=== PATIENT | female | born 1975 | race Caucasian/White ===

== ENCOUNTER → 2016-06-08 | Outpatient (CLI) | payer BC ==
[2015-09-13 14:31] VITALS: BP 108/67
[~2016-06-08] MED LIST: FLUO10CA13 PO; HYDR-971 PO
--- NOTE | 2016-06-08 14:21 | RAD ---
CT scan of the abdomen and pelvis without contrast 06/08/2016 Clinical history: Dysuria with intermittent left flank pain for 2 weeks worsening today. Technique: Unenhanced, contiguous, 3 mm axial sections were obtained through the abdomen and pelvis. One or more of the following individualized dose reduction techniques were utilized for this study: 1. Automated exposure control. 2. Adjustment of the mA and/or kV according to patient size. 3. Use of iterative reconstruction technique. Findings: The liver, spleen, pancreas and adrenal glands are within normal limits. No renal or ureteral calculus is seen. There is no evidence of obstruction of either collecting system. Mild atherosclerotic calcification of the abdominal aorta is seen. The abdominal aorta tapers normally. The gallbladder is contracted. No free fluid or free air is seen within the abdomen. There is no evidence of bowel obstruction. Air and stool is seen throughout the colon. The appendix is well visualized and is within normal limits. Images through the pelvis demonstrate the urinary bladder distended with urine. Calcifications are seen within the pelvis consistent with phleboliths. No free fluid is seen. No distal ureteral calculus is noted. Scattered diverticula are seen involving the sigmoid colon. No inflammatory changes are seen in the adjacent fat. Mild S-shaped curvature of the thoracolumbar spine is seen. Degenerative changes are seen along the lower lumbar spine and both hips. Impression: No acute abnormality is seen.
== END | disposition home or self-care (01) ==
LOC: CT 13:34
PROVIDERS: ATTEND Physician Assistant Medical
DX: R60.0 Localized edema (principal)
CPT/HCPCS: 74176

== ENCOUNTER → 2017-11-23 | Outpatient (CLI) | payer BC ==
[2015-09-13 14:31] VITALS: BP 108/67
--- NOTE | 2017-11-24 08:38 | RAD ---
DATE: 11/23/2017 EXAM: MAMMO MARLEN SCREENING BILATERAL HISTORY: Screening mammography. No current relevant symptoms. COMPARISON: 11/07/2014, 11/23/2017 screening mammographic exams This study was interpreted with the benefit of Computerized Aided Detection (CAD ). Breast Density: Scattered fibroglandular densities are present. FINDINGS: Benign calcifications are present. No mass or distortion in the interval. No suspicious calcifications. IMPRESSION: BI-RADS CATEGORY: 2 BENIGN FINDING(S) RECOMMENDED FOLLOW-UP: PQRS compliance statement: Patient information was entered into a reminder system with a target due date 1 year for the next mammogram. Mammography is a sensitive method for finding small breast cancers, but it does not detect them all and is not a substitute for careful clinical examination. A negative mammogram does not negate a clinically suspicious finding and should not result in delay in biopsying a clinically suspicious abnormality. "Our facility is accredited by the [employer] Mammography Program." TIFFANIED
== END | disposition home or self-care (01) ==
LOC: MAMMO 08:01
PROVIDERS: ATTEND Physician Assistant Medical
DX: Z12.31 Encounter for screening mammogram for malignant neoplasm of breast (principal); K21.9 Gastro-esophageal reflux disease without esophagitis; Z90.710 Acquired absence of both cervix and uterus
CPT/HCPCS: 77063; 77067

== ENCOUNTER 2018-05-08 18:14 | Observation (INO) | payer BC ==
[~2018-05-08] VITALS: Ht 168.9 cm; Wt 85.0 kg
[~2018-05-08 18:14] MED LIST changes: +HYDR-3165 PO; -HYDR-971 PO
--- NOTE | 2018-05-08 18:20 | ED.ADGEN ---
Past History Past Medical History: Anxiety Past Surgical History: Hysterectomy Alcohol Use: Occasionally Drug Use: None Adult General Chief Complaint Chief Complaint ".. I passed out..." .. " at dinner last night..... " .. " but I still got this chest pain...-"Pt.. ".. She was not breathing... and I could not feel a pulse so I started CPR and breathing for her... "...she eventually came around... " She had Chest Pain... but she would not come to the hospital.." - HPI HPI Patient is a 42 year old female who presents with above hx and complaints of syncope with loss of consciousness last night at dinner. Reportedly patient gave her breaths and started compressions on or before she regained consciousness. On regaining consciousness patient reported chest pain left lower chest wall which has been persistent all day with no improvement. The pain appears to be chest wall. Patient does not remember any presyncope symptoms or findings of dysrhythmia.. Patient does smoke. No previous cardiac history no previous history of syncope. Patient denies any history of coagulopathy. Patient denies health problems. Patient normally follows with Dr. Ruiz Review of Systems Review of Systems Constitutional: Denies fever or chills [] Eyes: Denies change in visual acuity, redness, or eye pain []Hx. blindness in left eye HENT: Denies nasal congestion or sore throat [] Respiratory: Denies cough or shortness of breath [] Cardiovascular: No additional information not addressed in HPI [] GI: Denies abdominal pain, nausea, vomiting, bloody stools or diarrhea [] : Denies dysuria or hematuria [] Musculoskeletal: Denies back pain or joint pain [] Integument: Denies rash or skin lesions [] Neurologic: Denies headache, focal weakness or sensory changes [] Endocrine: Denies polyuria or polydipsia [] All other systems were reviewed and found to be within normal limits, except as documented in this note. Family History Family History No early onset of cardiac problems or coagulopathy Current Medications Current Medications Current Medications Medications (Trade) Dose Ordered Sig/Marcela Start Time Stop Time Status Last Admin Dose Admin Lactated Ringer's 1,000 ml @ 100 mls/hr Q10H 05/08/18 18:30 05/09/18 04:30 DC 05/08/18 23:16 100 MLS/HR Allergies Allergies Allergies Coded Allergies Type Severity Reaction Last Updated Verified No Known Drug Allergies 12/24/14 No Physical Exam Physical Exam Constitutional: , [id number] distress, non-toxic appearance. [] HENT: Normocephalic, atraumatic, bilateral external ears normal, oropharynx moist, no oral exudates, nose normal. [] Eyes: PERRLA, EOMI, conjunctiva normal, no discharge. Glasses. Blind left eye- chronic finding Neck: Normal range of motion, no tenderness, supple, no stridor. [] No bruits in neck Cardiovascular:Heart rate regular rhythm, no murmur [] Lungs & Thorax: Bilateral breath sounds equal at apex with scattered wheezes auscultation []reproducible chest wall tenderness along left edge of sternum. Abdomen: Bowel sounds normal, soft, no tenderness, no masses, no pulsatile masses. [] Old surgery scar. Skin: Warm, dry, no erythema, no rash. [] Back: No tenderness, no CVA tenderness. [] Extremities: No tenderness, no cyanosis, no clubbing, ROM intact, no edema. [] No cording appreciated in legs Neurologic: Alert and oriented X 3, normal motor function, normal sensory function, no focal deficits noted. []DTRs are +2 at patella and brachial. [employer] are equal. No drift. Patient ambulatory without problems. Psychologic: Affect anxious, judgement normal, mood normal. [] Current Patient Data Vital Signs Vital Signs Date Time Temp Pulse Resp B/P (MAP) Pulse Ox O2 Delivery O2 Flow Rate FiO2 05/08/18 19:40 73 20 121/75 (90) 98 Room Air 05/08/18 18:26 98.3 Lab Results Laboratory Tests Test 05/08/18 18:50 05/08/18 19:35 White Blood Count 7.3 x10^3/uL (4.0-11.0) Red Blood Count 4.36 x10^6/uL (3.50-5.40) Hemoglobin 14.1 g/dL (12.0-15.5) Hematocrit 40.3 % (36.0-47.0) Mean Corpuscular Volume 93 fL (79-100) Mean Corpuscular Hemoglobin 32 pg (25-35) Mean Corpuscular Hemoglobin Concent 35 g/dL (31-37) Red Cell Distribution Width 13.1 % (11.5-14.5) Platelet Count 299 x10^3/uL (140-400) Neutrophils (%) (Auto) 49 % (31-73) Lymphocytes (%) (Auto) 42 % (24-48) Monocytes (%) (Auto) 6 % (0-9) Eosinophils (%) (Auto) 2 % (0-3) Basophils (%) (Auto) 1 % (0-3) Neutrophils # (Auto) 3.6 x10^3uL (1.8-7.7) Lymphocytes # (Auto) 3.1 x10^3/uL (1.0-4.8) Monocytes # (Auto) 0.4 x10^3/uL (0.0-1.1) Eosinophils # (Auto) 0.1 x10^3/uL (0.0-0.7) Basophils # (Auto) 0.1 x10^3/uL (0.0-0.2) Erythrocyte Sedimentation Rate 5 (0-25) Prothrombin Time 9.3 SEC (9.4-11.4) L Prothrombin Time INR 0.9 (0.9-1.1) PTT 27 SEC (23-33) D-Dimer (Dilia) 0.39 mg/L (0.00-0.50) Sodium Level 143 mmol/L (136-145) Potassium Level 3.6 mmol/L (3.5-5.1) Chloride Level 107 mmol/L (98-107) Carbon Dioxide Level 24 mmol/L (21-32) Anion Gap 12 (6-14) Blood Urea Nitrogen 17 mg/dL (7-20) Creatinine 1.0 mg/dL (0.6-1.0) Estimated GFR (Cockcroft-Gault) 60.8 Glucose Level 102 mg/dL (70-99) H Calcium Level 9.3 mg/dL (8.5-10.1) Magnesium Level 2.1 mg/dL (1.8-2.4) Total Bilirubin 0.2 mg/dL (0.2-1.0) Direct Bilirubin 0.1 mg/dL (0.0-0.2) Aspartate Amino Transferase (AST) 16 U/L (15-37) Alanine Aminotransferase (ALT) 18 U/L (14-59) Alkaline Phosphatase 73 U/L (46-116) Creatine Kinase 77 U/L (26-192) Troponin I Quantitative < 0.017 ng/mL (0-0.055) BL-Mox-D-Type Natriuretic Peptide 32 pg/mL (0-124) Total Protein 7.4 g/dL (6.4-8.2) Albumin 4.2 g/dL (3.4-5.0) Lipase 218 U/L (73-393) Ethyl Alcohol Level < 10 mg/dL (0-10) Urine Collection Type Unknown Urine Color Yellow Urine Clarity Clear Urine pH 6.5 Urine Specific [place] 1.010 Urine Protein Neg (NEG-TRACE) Urine Glucose (UA) Neg mg/dL (NEG) Urine Ketones (Stick) Neg mg/dL (NEG) Urine Blood Trace (NEG) Urine Nitrite Neg (NEG) Urine Bilirubin Neg (NEG) Urine Urobilinogen Dipstick 0.2 mg/dL (0.2 mg/dL) Urine Leukocyte Esterase Trace (NEG) Urine RBC Occ /HPF (0-2) Urine WBC 1-4 /HPF (0-4) Urine Squamous Epithelial Cells Few /LPF Urine Bacteria 0 /HPF (0-FEW) Urine Opiates Screen Neg (NEG) Urine Methadone Screen Neg (NEG) Urine Barbiturates Neg (NEG) Urine Phencyclidine Screen Neg (NEG) Urine Amphetamine/Methamphetamine Neg (NEG) Urine Benzodiazepines Screen Neg (NEG) Urine Cocaine Screen Neg (NEG) Urine Cannabinoids Screen Neg (NEG) Urine Ethyl Alcohol Neg (NEG) EKG EKG My interpretation EKG shows a sinus rhythm at 78 beats per minute. There is some nonspecific contour admin Carol is anterior septal leads. But no findings acute STEMI with contralateral changes.[] Radiology/Procedures Radiology/Procedures My interpretation chest x-ray shows no acute cardiopulmonary findings. No free air in the diaphragm. No findings of pneumothorax.[] No large infiltrate, or consolidation, but there are some patchy areas interstitial areas versus atelectasis. My interpretation CT of head shows no shift, mass, edema, bleed, or fracture. See formal report when available Course & Med Decision Making Course & Med Decision Making Pertinent Labs and Imaging studies reviewed. (See chart for details) Patient to be admitted to and to have cardiology consult. Neuro monitoring. [] Final Impression Final Impression 1. Syncope[] 2. Chest Pain 3. Hx. CPR last night ? 4. Tobacco Use 5. Blind Lt eye Dragon Disclaimer Fidelon Disclaimer This electronic medical record was generated, in whole or in part, using a voice recognition dictation system. Discharge Summary Visit Information Final Diagnosis Problems Medical Problems: (1) Syncope and collapse Status: Acute Brief Hospital Course Allergies Allergies Coded Allergies Type Severity Reaction Last Updated Verified No Known Drug Allergies 12/24/14 No Vital Signs Vital Signs Date Time Temp Pulse Resp B/P (MAP) Pulse Ox O2 Delivery O2 Flow Rate FiO2 05/08/18 19:40 73 20 121/75 (90) 98 Room Air 05/08/18 18:26 98.3 Lab Results Laboratory Tests Test 05/08/18 18:50 05/08/18 19:35 White Blood Count 7.3 x10^3/uL (4.0-11.0) Red Blood Count 4.36 x10^6/uL (3.50-5.40) Hemoglobin 14.1 g/dL (12.0-15.5) Hematocrit 40.3 % (36.0-47.0) Mean Corpuscular Volume 93 fL (79-100) Mean Corpuscular Hemoglobin 32 pg (25-35) Mean Corpuscular Hemoglobin Concent 35 g/dL (31-37) Red Cell Distribution Width 13.1 % (11.5-14.5) Platelet Count 299 x10^3/uL (140-400) Neutrophils (%) (Auto) 49 % (31-73) Lymphocytes (%) (Auto) 42 % (24-48) Monocytes (%) (Auto) 6 % (0-9) Eosinophils (%) (Auto) 2 % (0-3) Basophils (%) (Auto) 1 % (0-3) Neutrophils # (Auto) 3.6 x10^3uL (1.8-7.7) Lymphocytes # (Auto) 3.1 x10^3/uL (1.0-4.8) Monocytes # (Auto) 0.4 x10^3/uL (0.0-1.1) Eosinophils # (Auto) 0.1 x10^3/uL (0.0-0.7) Basophils # (Auto) 0.1 x10^3/uL (0.0-0.2) Erythrocyte Sedimentation Rate 5 (0-25) Prothrombin Time 9.3 SEC (9.4-11.4) Prothromb Time International Ratio 0.9 (0.9-1.1) Activated Partial Thromboplast Time 27 SEC (23-33) D-Dimer (Dilia) 0.39 mg/L (0.00-0.50) Sodium Level 143 mmol/L (136-145) Potassium Level 3.6 mmol/L (3.5-5.1) Chloride Level 107 mmol/L (98-107) Carbon Dioxide Level 24 mmol/L (21-32) Anion Gap 12 (6-14) Blood Urea Nitrogen 17 mg/dL (7-20) Creatinine 1.0 mg/dL (0.6-1.0) Estimated GFR (Cockcroft-Gault) 60.8 Glucose Level 102 mg/dL (70-99) Calcium Level 9.3 mg/dL (8.5-10.1) Magnesium Level 2.1 mg/dL (1.8-2.4) Total Bilirubin 0.2 mg/dL (0.2-1.0) Direct Bilirubin 0.1 mg/dL (0.0-0.2) Aspartate Amino Transf (AST/SGOT) 16 U/L (15-37) Alanine Aminotransferase (ALT/SGPT) 18 U/L (14-59) Alkaline Phosphatase 73 U/L (46-116) Creatine Kinase 77 U/L (26-192) Troponin I Quantitative < 0.017 ng/mL (0-0.055) UA-Kvj-K-Type Natriuretic Peptide 32 pg/mL (0-124) Total Protein 7.4 g/dL (6.4-8.2) Albumin 4.2 g/dL (3.4-5.0) Lipase 218 U/L (73-393) Ethyl Alcohol Level < 10 mg/dL (0-10) Urine Collection Type Unknown Urine Color Yellow Urine Clarity Clear Urine pH 6.5 Urine Specific [place] 1.010 Urine Protein Neg (NEG-TRACE) Urine Glucose (UA) Neg mg/dL (NEG) Urine Ketones (Stick) Neg mg/dL (NEG) Urine Blood Trace (NEG) Urine Nitrite Neg (NEG) Urine Bilirubin Neg (NEG) Urine Urobilinogen Dipstick 0.2 mg/dL (0.2 mg/dL) Urine Leukocyte Esterase Trace (NEG) Urine RBC Occ /HPF (0-2) Urine WBC 1-4 /HPF (0-4) Urine Squamous Epithelial Cells Few /LPF Urine Bacteria 0 /HPF (0-FEW) Urine Opiates Screen Neg (NEG) Urine Methadone Screen Neg (NEG) Urine Barbiturates Neg (NEG) Urine Phencyclidine Screen Neg (NEG) Urine Amphetamine/Methamphetamine Neg (NEG) Urine Benzodiazepines Screen Neg (NEG) Urine Cocaine Screen Neg (NEG) Urine Cannabinoids Screen Neg (NEG) Urine Ethyl Alcohol Neg (NEG) Brief Hospital Course Ms. Modi is a 42 old female who presented with hx of syncope yester night with short course of CPR by . Came in because of continued chest pain. Admitted to Dr Lester with cardiology consult. Discharge Information Condition at Discharge: Stable Dischare Medications Current Medications Lactated Ringer's 1,000 ml @ 100 mls/hr Q10H IV Last administered on at 23:16; Admin Dose 100 MLS/HR; Start 05/08/18 at 18:30; Stop 05/09/18 at 04: 30; Status DC Active Scripts Active [place] 5-325 Tablet (Hydrocodone Bit/Acetaminophen) 1 Each Tablet 1-2 Tab PO Q6HRS PRN Reported Prozac (Fluoxetine Hcl) 10 Mg Capsule Unknown Dose PO Dragon Disclaimer This chart was dictated in whole or in part using Voice Recognition software in a busy, high-work load, and often noisy Emergency Department environment. It may contain unintended and wholly unrecognized errors or omissions. CAIT ABDI MD May 08, 2018 18:20
--- NOTE | 2018-05-08 18:46 | EKG ---
[address] [address] Test Date: 2018-05-08 Test Time: 18:34:18 Pat Name: LORRI ESPITIA Department: Room: Gender: F Cable Swager: : 1975 Requested By: CAIT ABDI Order Number: [id number] Reading MD: Daniel Castellanos MD Measurements Intervals [place] Rate: 78 P: 28 [place]: 154 QRS: 39 QRSD: 78 T: 26 QT: 350 QTc: 402 Interpretive Statements SINUS RHYTHM Electronically Signed On 05-09-2018 11:47:10 CDT by Daniel Castellanos MD
[2018-05-08] MEDS: IV RINGERS SOLUTION,LACTATED 1,000 ML IV SCH ×2 (18:55→23:16)
[2018-05-08 19:07] LABS: BASO # 0.1 x10^3/uL (0.0-0.2); BASO % 1 % (0-3); EOS # 0.1 x10^3/uL (0.0-0.7); EOS % 2 % (0-3); HEMATOCRIT 40.3 % (36.0-47.0); HEMOGLOBIN 14.1 g/dL (12.0-15.5); LYMPH # 3.1 x10^3/uL (1.0-4.8); LYMPH % 42 % (24-48); MEAN CORPUSCULAR HEMOGLOBIN 32 pg (25-35); MEAN CORPUSCULAR HGB CONC 35 g/dL (31-37); MEAN CORPUSCULAR VOLUME 93 fL (79-100); MONO # 0.4 x10^3/uL (0.0-1.1); MONO % 6 % (0-9); NEUT # 3.6 x10^3uL (1.8-7.7); NEUT % 49 % (31-73); PLATELET COUNT 299 x10^3/uL (140-400); RED BLOOD COUNT 4.36 x10^6/uL (3.50-5.40); RED CELL DISTRIBUTION WIDTH 13.1 % (11.5-14.5); WHITE BLOOD COUNT 7.3 x10^3/uL (4.0-11.0)
[2018-05-08 19:29] LABS: ALBUMIN 4.2 g/dL (3.4-5.0); CALCIUM 9.3 mg/dL (8.5-10.1); DIRECT BILIRUBIN 0.1 mg/dL (0.0-0.2); GFR 60.8; MAGNESIUM 2.1 mg/dL (1.8-2.4); POTASSIUM 3.6 mmol/L (3.5-5.1); TOTAL BILIRUBIN 0.2 mg/dL (0.2-1.0); TOTAL PROTEIN 7.4 g/dL (6.4-8.2)
--- NOTE | 2018-05-08 19:43 | RAD ---
CT HEAD WO CONTRAST Clinical indications: Syncope COMPARISON: None available. Technique: Noncontrast axial cross sectional scanning of the head was performed. PQRS compliance Statement One or more of the following individualized dose reduction techniques were utilized for this study: 1. Automated exposure control 2. Adjustment of the mA and/or kV according to patient size 3. Use of iterative reconstruction technique Findings: No acute intracranial hemorrhage or midline shift or mass-effect or hydrocephalus or extra-axial fluid collection is seen. No focal hypodense area or sulci effacement is seen to indicate an acute infarct or edema radiographically. No skull fracture or pneumocephalus is seen. No opacification of the mastoid sinuses or the paranasal sinuses is seen. The maxillary sinuses are not seen in this study. Impression: No acute intracranial abnormality is seen. Electronically signed by: Rustam Dominguez MD (05/08/2018 7:40 PM) [facility]
[2018-05-08 19:59] LABS: BARBITURATES NEG (NEG); BENZODIAZEPINES NEG (NEG); CANNABINOIDS NEG (NEG); COCAINE NEG (NEG); METHADONE NEG (NEG); OPIATES NEG (NEG); PHENCYCLIDINE NEG (NEG)
[2018-05-08 20:00] LABS: AMPHETAMINE/METHAMPHETAMINE NEG (NEG)
[2018-05-08 20:09] LABS: BILIRUBIN,URINE NEG (NEG); CLARITY,URINE CLEAR; COLOR,URINE YELLOW; GLUCOSE,URINE NEG (NEG); NITRITE,URINE NEG (NEG); RBC,URINE OCC /HPF (0-2); UROBILINOGEN,URINE 0.2 mg/dL (0.2 mg/dL)
[2018-05-08 20:10] LABS: BACTERIA,URINE 0 /HPF (0-FEW); SQUAMOUS EPITHELIAL CELL,UR FEW /LPF
[2018-05-08 20:11] LABS: SEDIMENTATION RATE 5 (0-25)
[2018-05-08] MEDS ORDERED: ENOXAPARIN ** NOTE DOSE ** SYRINGE SQ ONE (21:00)
[2018-05-08] MEDS ORDERED: ASPIRIN 325 MG TABLET PO ONE (21:00)
[2018-05-08] MEDS ORDERED: ENOXAPARIN ** NOTE DOSE ** SYRINGE SQ SCH (21:00)
[2018-05-08 21:51] VITALS: BP 125/85
--- NOTE | 2018-05-09 00:57 | RAD ---
Indication:Syncope TECHNIQUE:Portable AP chest X-ray COMPARISON:None FINDINGS: Heart is normal in size. Mild bilateral interstitial opacities. No focal consolidation. No pneumothorax or pleural effusion. Visualized bony thorax within normal limits. IMPRESSION: Mild interstitial opacities bilaterally may be secondary to atypical/viral infection. Electronically signed by: Urban Maria DO (05/09/2018 12:54 AM) [id number]
[2018-05-09] MEDS: ACETAMINOPHEN 325 MG TABLET PO PRN ×3 (05:14→22:20)
[2018-05-09 05:24] VITALS: BP 99/64
[2018-05-09 07:26] LABS: BASO % 1 % (0-3); EOS # 0.1 x10^3/uL (0.0-0.7); EOS % 2 % (0-3); HEMATOCRIT 39.2 % (36.0-47.0); HEMOGLOBIN 13.5 g/dL (12.0-15.5); LYMPH # 2.1 x10^3/uL (1.0-4.8); LYMPH % 37 % (24-48); MEAN CORPUSCULAR HEMOGLOBIN 32 pg (25-35); MEAN CORPUSCULAR HGB CONC 35 g/dL (31-37); MEAN CORPUSCULAR VOLUME 92 fL (79-100); MONO # 0.4 x10^3/uL (0.0-1.1); MONO % 7 % (0-9); NEUT # 3.1 x10^3uL (1.8-7.7); NEUT % 53 % (31-73); PLATELET COUNT 259 x10^3/uL (140-400); RED BLOOD COUNT 4.28 x10^6/uL (3.50-5.40); RED CELL DISTRIBUTION WIDTH 12.9 % (11.5-14.5); WHITE BLOOD COUNT 5.9 x10^3/uL (4.0-11.0)
[2018-05-09 07:30] LABS: GFR 60.8
[2018-05-09] MEDS: IPRATRPIUM/ALBUTEROL 0.5/2.5MG 3 ML NEBU. NEB SCH ×4 (08:00→20:00)
--- NOTE | 2018-05-09 10:02 | HP ---
ADMIT DATE: 05/08/2018 HISTORY OF PRESENT ILLNESS: The patient is a 42-year-old female patient, who came to the Emergency Room stating that she had a syncopal episode with loss of consciousness the night before at dinner. Reportedly, the patient's gave her a breathing breath and started compression before she regained her consciousness. On regaining her consciousness, the patient reported chest pain in the left lower chest wall, which has persisted all day with no improvement. Her apparently wanted her to come to the hospital, but the patient refused to come and in fact, she went yesterday and worked at [employer] in [place] and eventually she came to the Emergency Room because the pain continued. She said that she had a syncopal episode about 20 years ago when her daughter was born, but has never had any symptoms like this. She was evaluated in the Emergency Room. Her EKG showed that she was in sinus rhythm. Her first set of cardiac enzyme was normal, showed no evidence of ST segment elevation or depression. She was admitted to do 2 more sets of cardiac enzyme and consult the Cardiology. PAST MEDICAL HISTORY: Significant for severe gastroesophageal reflux disease, diverticulosis, and divergent squint during childhood. 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 PAST SURGICAL HISTORY: Significant for total abdominal hysterectomy. She has also esophagogastroduodenoscopy and colonoscopy. ALLERGIES: She has no known drug allergies. MEDICATIONS: She is currently on Protonix 40 mg once a day. She is also on fluoxetine 10 mg once a day, and hydrocodone/APAP 5/325 every 6 hours. FAMILY HISTORY: She has 2 sisters, both younger and healthy. Her father is alive at age of 63 and healthy. Her mother is alive at the age of 63 and has hypertension. SOCIAL HISTORY: She is , has 1 daughter. She smokes half to 1 pack a day, does not drink alcohol, smokes marijuana occasionally. She works at [employer] in [place]. REVIEW OF SYSTEMS: The patient is blind in her left eye, but denied any cataract, glaucoma, or macular degeneration. Denied any earache, tinnitus, or sensorineural deafness. Denied any nosebleeds, stuffy nose, or postnasal drip. Denied any sore throat, sore tongue, toothache, hoarseness of voice, or difficulty swallowing. Denied any nausea, vomiting, diarrhea, or constipation. Denied any hematemesis, melena, or hematochezia. Denied any dysuria, frequency, or hematuria. Did complain of left-sided chest pain, but denied any shortness of breath, orthopnea, or paroxysmal nocturnal dyspnea. Denied any cough, phlegm, or hemoptysis. Denied any further episode of dizziness, lightheadedness, or vertigo. Denied any chills, rigors, or fever. PHYSICAL EXAMINATION: GENERAL: On arrival to the Emergency Room, she looked well and was clearly in no apparent respiratory distress. No pallor, jaundice, cyanosis, or thyromegaly. No jugular venous distension. No lower limb edema. VITAL SIGNS: Her heart rate was 84, blood pressure 107/74, temperature was 98.3, respiratory rate 20, and oxygen saturation was 97% on room air. HEAD, EYES, EARS, NOSE, AND THROAT: Showed normocephalic, atraumatic. NECK: Supple. HEART: Showed normal first and second heart sounds with no gallop, rub, or murmur. CHEST: Clear to auscultation. No crepitation or rhonchi. ABDOMEN: Distended, soft, nontender. No guarding or rigidity. No organomegaly. All hernial orifices are intact. Bowel sounds normal. NEUROLOGIC: She is awake, alert, responding appropriately. All cranial nerves intact. EXTREMITIES: She moves extremities without difficulty. She ambulates without assistance or assistive devices. LABORATORY DATA: Her lab work on admission showed a white cell count of 7300, hemoglobin 14, hematocrit 40, MCV 93, and platelet count 299,000. Serum sodium was 143, potassium 3.6, chloride 107, bicarbonate 24, anion gap of 12, BUN 17, creatinine 1, estimated GFR was 61 mL per minute. Her glucose 102, calcium was 9.3, magnesium 2.1. Total bilirubin, AST, ALT, alkaline phosphatase were normal. Total protein was 7.4, albumin was 4.2. Lipase was 218. Her prothrombin time was 9.3, INR of 0.9, aPTT was 27, and D-dimer was 0.39. Her urinalysis showed the urine was yellow, clear with a pH of 6.5, specific gravity of 1.010. The urine was negative for protein, glucose, ketones, trace of blood, negative for nitrite and trace leukocyte esterase. There are occasional rbc's, 1-4 wbc's, and no bacteria. Her urine toxicology screen was essentially negative. Her CT scan of the head showed that the patient showed no intracranial hemorrhage, midline shift, or mass effect. No hydrocephalus or extraaxial fluid collection is seen. No focal hypodense areas or sulci effacement is seen to indicate an acute infarct or edema. Radiographically, no skull fracture or pneumocephalus is seen, no opacification of the mastoid sinuses or paranasal sinus is seen. The maxillary sinuses are not seen in this study. The chest x-ray showed the heart is normal in size. She has mild bilateral interstitial opacities. No focal consolidation, no pneumothorax or pleural effusion, visualized bony thorax well within normal limits. IMPRESSION: In summary, this is a 42-year-old female patient with only smoking cigarettes as a risk factor for premature coronary artery disease. She is not diabetic, nor hypertensive or has hyperlipidemia. She has no family of premature coronary artery disease and apparently has had syncopal episode and what seemed to be cardiac arrest that required CPR by her who apparently refused to come after the event, but she came yesterday last night as chest pain from CPR persisted. The plan is obviously to do 2 more sets of cardiac enzyme. We will check her fasting lipid profile. We will consult the Cardiology and decide on further management accordingly. JORI DC MD DR: SOPHIE/erica JOB#: [id number] / [id number]
[2018-05-09 10:11] VITALS: BP 132/68
[2018-05-09] MEDS: ENOXAPARIN ** NOTE DOSE ** SYRINGE SQ SCH ×2 (10:15→21:00)
[2018-05-09] MEDS: ASPIRIN 81 MG TAB.CHEW PO SCH (10:15)
--- NOTE | 2018-05-09 10:32 | PDOC2 ---
JAYNEMIREYA Ruy COIN PURSE FRAMER 05/09/18 1032: CONSULT Date of Admission DATE: 05/09/18 TIME: 10:32 Problem List Problems Medical Problems: (1) Syncope and collapse Status: Acute History of Present Illness Ms Modi is a 42 year old female who presented after a witnessed syncopal event and possible arrest for which her performed CPR briefly. She reports that she was sitting at the table when she had a sudden onset of palpitations she describes as her heart racing. She says she told her her heart was racing and decided to go lay down. She began to have shortness of breath, lightheadedness as well as feeling like everything sounded like she was in a tunnel. When laying down did not help her symptoms she got up and walked to kitchen. She made a trip to the bathroom and when walking back to her living room her dizziness worsened and she states this is her last memory. Her reports her eyes rolled back and she passed out. He was unable to detect a pulse, she was not breathing and turning conte so he started CPR. he states he did compressions for about 40 -50 seconds when she took a sudden snoring like breath. He says over the next minute or so she woke but was "talking gibberish". He believes it took her 5-10 minutes to be aware and understandable. She was then transported to the ED. She denies any preceding symptoms other than as above. She reports chest discomfort now from the compressions but denies any prior chest discomfort. She denies any prior dyspnea, congestive symptoms, palpitations or syncope. She denies any preceding limitations in functional capacity. She denies any recent illness. She did report to MD use of Keto tabs and recent 26 lb weight loss. Additionally she reports chronic acid reflux for 20+ years for which she regularly takes a PPI. She does report increased symptoms recently and needing to take tums in addition to Rx. She denies any association of her discomfort to exertion but is unable to directly link symptoms to food absence or intake either. She reports prior EGD with no findings. GI: Diverticulosis, GERD Psych: Anxiety, Depression, Other (increased stress) Past Surgical History: Hysterectomy (oophorectomy ) Family History: Cancer, Coronary Artery Disease, Diabetes, Hypertension, Other (dementia) Social History + tobacco use, occasional marijuana use, no significant ETOH, no other illicit drug use Current Medications Current Medications Lactated Ringer's 1,000 ml @ 100 mls/hr Q10H IV Last administered on at 23:16; Start 05/08/18 at 18:30; Stop 05/09/18 at 04:30; Status DC Aspirin (Jose Luis Aspirin) 325 mg 1X ONCE PO Last administered on 05/08/18at 21:00 ; Start 05/08/18 at 21:00; Stop 05/08/18 at 21:04; Status DC Enoxaparin Sodium (Lovenox 80mg Syringe) 80 mg 1X ONCE SQ Last administered on 05/08/18at 21:01; Start 05/08/18 at 21:00; Stop 05/08/18 at 21:05; Status DC Ondansetron HCl (Zofran) 4 mg PRN Q4HRS PRN IV NAUSEA/VOMITING; Start 05/08/18 at 21:00; Stop 05/09/18 at 20:59 Acetaminophen (Tylenol) 650 mg PRN Q4HRS PRN PO FEVER Last administered on 05/09at 05:14; Start 05/08/18 at 21:00; Stop 05/09/18 at 20:59 Albuterol/ Ipratropium (Duoneb) 3 ml RTQID NEB ; Start 05/09/18 at 08:00; Stop 05/10/18 at 07:59 Aspirin (Children'S Aspirin) 81 mg DAILY PO Last administered on 05/09/18at 10: 15; Start 05/09/18 at 09:00 Enoxaparin Sodium (Lovenox 80mg Syringe) 80 mg BID SQ ; Start 05/08/18 at 21:00 ; Stop 05/08/18 at 21:13; Status DC Enoxaparin Sodium (Lovenox 80mg Syringe) 80 mg BID SQ Last administered on 05/09at 10:15; Start 05/09/18 at 09:00 Nicotine (Nicoderm Cq 21mg) 1 patch DAILY TD ; Start 05/09/18 at 10:30 Active Scripts Active [place] 5-325 Tablet (Hydrocodone Bit/Acetaminophen) 1 Each Tablet 1-2 Tab PO Q6HRS PRN Reported Prozac (Fluoxetine Hcl) 10 Mg Capsule Unknown Dose PO Allergies: Coded Allergies: No Known Drug Allergies (Unverified , 12/24/14) Review of System as per HPI otherwise negative General: Alert, Oriented X3, Cooperative, No acute distress HEENT: Atraumatic, EOMI, Mucous membr. moist/pink Lungs: Clear to auscultation, Normal air movement Heart: Regular rate, Normal S1, Normal S2, Other (no murmurs, gallops, clicks or rubs) Abdomen: Normal bowel sounds, Soft, No tenderness Extremities: No clubbing, No cyanosis, No edema, Normal pulses Neuro: Normal speech, Strength at 5/5 X4 ext, Cranial nerves 3-12 NL Psych/Mental Status: Mental status NL, Mood NL VITALS Vital Signs Date Time Temp Pulse Resp B/P (MAP) Pulse Ox O2 Delivery O2 Flow Rate FiO2 05/09/18 05:24 97.6 63 20 99/64 (76) 97 Room Air Labs Laboratory Tests Test 05/08/18 18:50 05/08/18 19:35 05/09/18 06:58 White Blood Count 7.3 x10^3/uL (4.0-11.0) 5.9 x10^3/uL (4.0-11.0) Red Blood Count 4.36 x10^6/uL (3.50-5.40) 4.28 x10^6/uL (3.50-5.40) Hemoglobin 14.1 g/dL (12.0-15.5) 13.5 g/dL (12.0-15.5) Hematocrit 40.3 % (36.0-47.0) 39.2 % (36.0-47.0) Mean Corpuscular Volume 93 fL (79-100) 92 fL (79-100) Mean Corpuscular Hemoglobin 32 pg (25-35) 32 pg (25-35) Mean Corpuscular Hemoglobin Concent 35 g/dL (31-37) 35 g/dL (31-37) Red Cell Distribution Width 13.1 % (11.5-14.5) 12.9 % (11.5-14.5) Platelet Count 299 x10^3/uL (140-400) 259 x10^3/uL (140-400) Neutrophils (%) (Auto) 49 % (31-73) 53 % (31-73) Lymphocytes (%) (Auto) 42 % (24-48) 37 % (24-48) Monocytes (%) (Auto) 6 % (0-9) 7 % (0-9) Eosinophils (%) (Auto) 2 % (0-3) 2 % (0-3) Basophils (%) (Auto) 1 % (0-3) 1 % (0-3) Neutrophils # (Auto) 3.6 x10^3uL (1.8-7.7) 3.1 x10^3uL (1.8-7.7) Lymphocytes # (Auto) 3.1 x10^3/uL (1.0-4.8) 2.1 x10^3/uL (1.0-4.8) Monocytes # (Auto) 0.4 x10^3/uL (0.0-1.1) 0.4 x10^3/uL (0.0-1.1) Eosinophils # (Auto) 0.1 x10^3/uL (0.0-0.7) 0.1 x10^3/uL (0.0-0.7) Basophils # (Auto) 0.1 x10^3/uL (0.0-0.2) 0.0 x10^3/uL (0.0-0.2) Erythrocyte Sedimentation Rate 5 (0-25) Prothrombin Time 9.3 SEC (9.4-11.4) Prothromb Time International Ratio 0.9 (0.9-1.1) Activated Partial Thromboplast Time 27 SEC (23-33) D-Dimer (Dilia) 0.39 mg/L (0.00-0.50) Sodium Level 143 mmol/L (136-145) 144 mmol/L (136-145) Potassium Level 3.6 mmol/L (3.5-5.1) 4.0 mmol/L (3.5-5.1) Chloride Level 107 mmol/L (98-107) 110 mmol/L (98-107) Carbon Dioxide Level 24 mmol/L (21-32) 23 mmol/L (21-32) Anion Gap 12 (6-14) 11 (6-14) Blood Urea Nitrogen 17 mg/dL (7-20) 15 mg/dL (7-20) Creatinine 1.0 mg/dL (0.6-1.0) 1.0 mg/dL (0.6-1.0) Estimated GFR (Cockcroft-Gault) 60.8 60.8 Glucose Level 102 mg/dL (70-99) 95 mg/dL (70-99) Calcium Level 9.3 mg/dL (8.5-10.1) 9.0 mg/dL (8.5-10.1) Magnesium Level 2.1 mg/dL (1.8-2.4) Total Bilirubin 0.2 mg/dL (0.2-1.0) Direct Bilirubin 0.1 mg/dL (0.0-0.2) Aspartate Amino Transf (AST/SGOT) 16 U/L (15-37) Alanine Aminotransferase (ALT/SGPT) 18 U/L (14-59) Alkaline Phosphatase 73 U/L (46-116) Creatine Kinase 77 U/L (26-192) Troponin I Quantitative < 0.017 ng/mL (0-0.055) < 0.017 ng/mL (0-0.055) JC-Ysh-D-Type Natriuretic Peptide 32 pg/mL (0-124) Total Protein 7.4 g/dL (6.4-8.2) Albumin 4.2 g/dL (3.4-5.0) Lipase 218 U/L (73-393) Ethyl Alcohol Level < 10 mg/dL (0-10) Urine Collection Type Unknown Urine Color Yellow Urine Clarity Clear Urine pH 6.5 Urine Specific [place] 1.010 Urine Protein Neg (NEG-TRACE) Urine Glucose (UA) Neg mg/dL (NEG) Urine Ketones (Stick) Neg mg/dL (NEG) Urine Blood Trace (NEG) Urine Nitrite Neg (NEG) Urine Bilirubin Neg (NEG) Urine Urobilinogen Dipstick 0.2 mg/dL (0.2 mg/dL) Urine Leukocyte Esterase Trace (NEG) Urine RBC Occ /HPF (0-2) Urine WBC 1-4 /HPF (0-4) Urine Squamous Epithelial Cells Few /LPF Urine Bacteria 0 /HPF (0-FEW) Urine Opiates Screen Neg (NEG) Urine Methadone Screen Neg (NEG) Urine Barbiturates Neg (NEG) Urine Phencyclidine Screen Neg (NEG) Urine Amphetamine/Methamphetamine Neg (NEG) Urine Benzodiazepines Screen Neg (NEG) Urine Cocaine Screen Neg (NEG) Urine Cannabinoids Screen Neg (NEG) Urine Ethyl Alcohol Neg (NEG) Images EKG - sinus rhythm, early R transition, no acute ischemic changes Assessment/Plan 1. Syncope - suspect arrhythmia based on history. No acute EKG changes, No troponin elevation. Check orthostatics. check echo. check lipids. MCT as outpatient. await echo for further recommendations Stop Keto supplements. No driving. 2. Chest pain, atypical - [place] ruled out. no acute EKG changes. check lipids. 3. GERD - resume PPI. 4. tobaccoism - cessation encouraged. JONES RIOS MD 05/09/18 1906: CONSULT Assessment/Plan Patient seen and examined. Agree with above nurse practitioner note. 42-year-old woman presenting with syncope after feeling that her heart was racing. Her examination, EKG and laboratory studies are unremarkable. The trigger was likely keto pills that she was taking for weight loss. We will rule out any occult ischemia and structural abnormalities with an echocardiogram and myocardial perfusion study tomorrow. Supportive care from a cardiac standpoint. I've asked her to stop the diet supplements and have also asked her to refrain from driving until she wears an event monitor for 2 weeks to rule out any occult arrhythmias that may be contributing to her problem. This was discussed with her family and her . All her questions were answered to her satisfaction. MIREYA GODOY APRN May 09, 2018 10:32 JONES RIOS MD May 09, 2018 19:06
[2018-05-09] MEDS: NICOTINE 21MG PATCH. TD SCH (10:34)
[2018-05-09] MEDS: PANTOPRAZOLE 40 MG TABLET. PO SCH (11:05)
[2018-05-09] MEDS: ONDANSETRON PF 4 MG/2 ML VIAL. IV PRN ×2 (12:44→20:57)
[2018-05-09 15:18] VITALS: BP 124/67
[2018-05-09 19:38] VITALS: BP 121/78
--- NOTE | 2018-05-09 21:10 | PN ---
DATE: 05/09/2018 SUBJECTIVE: The patient is resting slightly propped up in bed, in no apparent respiratory distress, awake, alert, complaining of chest pain. She apparently has had 2 sets of cardiac enzymes that were negative. Her EKG shows sinus rhythm. She was seen in consultation by Cardiology team and they basically recommended to do an echocardiogram and evaluation based an echo and nuclear medicine stress test and after discharge to continue with [facility] records. PHYSICAL EXAMINATION: GENERAL: When I examined her this morning, she looked well and was clearly in no apparent respiratory distress. No pallor, jaundice, cyanosis, or thyromegaly. No jugular venous distension. No lower limb edema. VITAL SIGNS: Her heart rate was 62, blood pressure was 99/64, temperature was 97.6, respiratory rate 20 and oxygen saturation was 97%. HEAD, EYES, EARS, NOSE AND THROAT: Normocephalic, atraumatic. NECK: Supple. HEART: Showed normal first and second heart sounds with no gallop, rub or murmur. CHEST: Clear to auscultation. No crepitation or rhonchi. ABDOMEN: Distended, soft, nontender. No guarding or rigidity. No organomegaly. Hernial orifice intact. Bowel sounds normal. NEUROLOGIC: She is awake, alert, responding appropriately. All cranial nerves are intact. She moves extremities without difficulty. She ambulates without assistance or assistive devices. LABORATORY DATA: This morning showed her white cell count to be 5900, hemoglobin 13.5, hematocrit 39, MCV 92 and platelet count 259,000. Her chemistry showed a serum sodium 144, potassium 4, chloride 110, bicarbonate 23, anion gap of 11, BUN 15, creatinine 1. Estimated GFR was 61 mL per minute. Her glucose was 95. Calcium was 9. Her prothrombin time, INR, aPTT and D-dimer are all within normal limits. ASSESSMENT: Syncope and collapse with arrhythmia suspected because of her symptoms. EKG and troponin ruled out myocardial infarction. She is scheduled for an echocardiogram as well as nuclear stress test and we also will check the lipid profile and decide on further management accordingly. JORI DC MD DR: SOPHIE/erica JOB#: [id number] / [id number]
[2018-05-09] MEDS ORDERED: ONDANSETRON PF 4 MG/2 ML VIAL. IV PRN (22:15)
[2018-05-09 22:47] VITALS: BP 111/73
[2018-05-10 05:19] VITALS: BP 122/91
--- NOTE | 2018-05-10 07:16 | CARD ---
MR#: [id number] Date of Study: 05/09/2018 Ordering Physician: MIREYA GODOY, Referring Physician: JORI DC Tech: Ruba Luu RDCS APPROVED REPORT EXAM: Two-dimensional and M-mode echocardiogram with Doppler and color Doppler. Other Information Quality : GoodHR: 82bpm Rhythm : NSRTechnically limited study due to body habitus. INDICATION Syncope 2D DIMENSIONS Left Atrium(2D)3.3 (1.6-4.0cm)IVSd0.7 (0.7-1.1cm) Aortic Root(2D)2.5 (2.0-3.7cm)LVDd4.4 (3.9-5.9cm) LVOT Diameter2.2 (1.8-2.4cm)PWd0.8 (0.7-1.1cm) LA Iatzmm96 (18-58mL)LVDs2.9 (2.5-4.0cm) FS (%) 34.9 %SV57.9 ml LVEF(%)64.4 (>50%) Aortic Valve AoV Peak Arjun.129.3cm/sAoV VTI26.2cm AO Peak GR.6.7mmHgLVOT Peak Arjun.96.1cm/s LVOT VTI 18.31cmAO Mean GR.5mmHg OKSANA (VMAX)2.38lu3GJR (VTI)2.71cm2 Mitral Valve MV E Lahooeep100.8cm/sMV DECEL KAVY000vr MV A Qrhqlija06.7cm/sE/A Ratio1.5 MV A Jnkufqdl220xl TDI Lateral E' P. V14.00cm/sE/Lateral E'7.3 Tricuspid Valve TR P. Zmivxnqh840nq/sRAP EFWTKDZR8mkSo TR Peak Gr.44koFyTVPQ54ymAl Pulmonary Vein S1 Iewyhnhj90.0cm/sS2 Aqwegwvw68.00cm/s LEFT VENTRICLE The left ventricle is normal size. There is normal left ventricular wall thickness. The left ventricu lar systolic function is normal and the ejection fraction is within normal range. EF 55% There is nor mal LV segmental wall motion. The left ventricular diastolic function and filling is normal for age. RIGHT VENTRICLE The right ventricle is normal size. There is normal right ventricular wall thickness. The right ventr icular systolic function is normal. ATRIA The left atrium size is normal. The right atrium size is normal. The interatrial septum is intact wit h no evidence for an atrial septal defect or patent foramen ovale as noted on 2-D or Doppler imaging. AORTIC VALVE The aortic valve is normal in structure and function. Doppler and Color Flow revealed no significant aortic regurgitation. There is no significant aortic valvular stenosis. There is no aortic valvular v egetation. MITRAL VALVE The mitral valve is normal in structure and function. There is no evidence of mitral valve prolapse. There is no mitral valve stenosis. Doppler and Color Flow revealed trace mitral valve regurgitation n oted. TRICUSPID VALVE The tricuspid valve is normal in structure and function. Doppler and Color Flow revealed mild tricusp id regurgitation. There is no tricuspid valve prolapse or vegetation. There is no tricuspid valve cain nosis. PULMONIC VALVE The pulmonary valve is normal in structure and function. Doppler and Color Flow revealed no pulmonic valvular regurgitation. There is no pulmonic valvular stenosis. GREAT VESSELS The aortic root is normal in size. The IVC is normal in size and collapses >50% with inspiration. PERICARDIAL EFFUSION There is no pleural effusion. There is no evidence of significant pericardial effusion. Critical Notification Critical Value: No <Conclusion> The left ventricular systolic function is normal and the ejection fraction is within normal range. EF 55% There is normal LV segmental wall motion. The left ventricular diastolic function and filling is normal for age. Signed by : Daniel Castellanos, Electronically Approved : 05/10/2018 07:16:38
[2018-05-10] MEDS: ACETAMINOPHEN 325 MG TABLET PO PRN (08:38)
[2018-05-10] MEDS: PANTOPRAZOLE 40 MG TABLET. PO SCH (08:38)
[2018-05-10] MEDS: NICOTINE 21MG PATCH. TD SCH (08:40)
[2018-05-10] MEDS ORDERED: REGADENOSON 0.4 MG/5 ML DISP.SYRIN. IV ONE (09:30)
--- NOTE | 2018-05-10 10:28 | PDOC ---
PROGRESS NOTES Diagnosis Problem Problems Medical Problems: (1) Syncope and collapse Status: Acute Assessment Problems Medical Problems: (1) Syncope and collapse Status: Acute 1. Syncope - suspect arrhythmia based on history. No acute EKG changes, No troponin elevation. Check orthostatics. No arrhythmias on tele since admission. MPI today. MCT as outpatient. Echo with normal LV function, wall motion. No significant abnormality. Stop Keto supplements. No driving until two weeks monitoring completed and outpatient follow up. 2. Chest pain, atypical - [place] ruled out. no acute EKG changes. 3. dyslipidemia - elevated tgs. check A1C. add Rx. 4. GERD - resume PPI. 5. tobaccoism - cessation encouraged. Subjective recurrent nausea vomiting last PM, she thinks related to medication on empty stomach. No chest pain, dyspnea or recurrent syncope. + lightheadedness and similar feeling during stress test this am. Objective tele: no arrhythmias Vital Signs Date Time Temp Pulse Resp B/P (MAP) Pulse Ox O2 Delivery O2 Flow Rate FiO2 05/10/18 08:48 Room Air 05/10/18 05:19 98.2 76 18 122/91 (101) 96 Intake and Output 05/10/18 07:00 Intake Total 0 ml Balance 0 ml Intake Oral 0 ml # Voids 1 Physical Exam gen: awake, alert and in no acute distress CV : regular rate and rhythm, no gallops, clicks or rubs, no significant murmurs Lungs: clear abd : + bowel sounds ext : no significant edema. Review of Relevant I have reviewed the following items renetta (where applicable) has been applied. Labs Laboratory Tests Test 05/08/18 18:50 05/08/18 19:35 05/08/18 20:00 05/09/18 06:58 White Blood Count 7.3 x10^3/uL (4.0-11.0) 5.9 x10^3/uL (4.0-11.0) Red Blood Count 4.36 x10^6/uL (3.50-5.40) 4.28 x10^6/uL (3.50-5.40) Hemoglobin 14.1 g/dL (12.0-15.5) 13.5 g/dL (12.0-15.5) Hematocrit 40.3 % (36.0-47.0) 39.2 % (36.0-47.0) Mean Corpuscular Volume 93 fL (79-100) 92 fL (79-100) Mean Corpuscular Hemoglobin 32 pg (25-35) 32 pg (25-35) Mean Corpuscular Hemoglobin Concent 35 g/dL (31-37) 35 g/dL (31-37) Red Cell Distribution Width 13.1 % (11.5-14.5) 12.9 % (11.5-14.5) Platelet Count 299 x10^3/uL (140-400) 259 x10^3/uL (140-400) Neutrophils (%) (Auto) 49 % (31-73) 53 % (31-73) Lymphocytes (%) (Auto) 42 % (24-48) 37 % (24-48) Monocytes (%) (Auto) 6 % (0-9) 7 % (0-9) Eosinophils (%) (Auto) 2 % (0-3) 2 % (0-3) Basophils (%) (Auto) 1 % (0-3) 1 % (0-3) Neutrophils # (Auto) 3.6 x10^3uL (1.8-7.7) 3.1 x10^3uL (1.8-7.7) Lymphocytes # (Auto) 3.1 x10^3/uL (1.0-4.8) 2.1 x10^3/uL (1.0-4.8) Monocytes # (Auto) 0.4 x10^3/uL (0.0-1.1) 0.4 x10^3/uL (0.0-1.1) Eosinophils # (Auto) 0.1 x10^3/uL (0.0-0.7) 0.1 x10^3/uL (0.0-0.7) Basophils # (Auto) 0.1 x10^3/uL (0.0-0.2) 0.0 x10^3/uL (0.0-0.2) Erythrocyte Sedimentation Rate 5 (0-25) Prothrombin Time 9.3 SEC (9.4-11.4) Prothromb Time International Ratio 0.9 (0.9-1.1) Activated Partial Thromboplast Time 27 SEC (23-33) D-Dimer (Dilia) 0.39 mg/L (0.00-0.50) Sodium Level 143 mmol/L (136-145) 144 mmol/L (136-145) Potassium Level 3.6 mmol/L (3.5-5.1) 4.0 mmol/L (3.5-5.1) Chloride Level 107 mmol/L (98-107) 110 mmol/L (98-107) Carbon Dioxide Level 24 mmol/L (21-32) 23 mmol/L (21-32) Anion Gap 12 (6-14) 11 (6-14) Blood Urea Nitrogen 17 mg/dL (7-20) 15 mg/dL (7-20) Creatinine 1.0 mg/dL (0.6-1.0) 1.0 mg/dL (0.6-1.0) Estimated GFR (Cockcroft-Gault) 60.8 60.8 Glucose Level 102 mg/dL (70-99) 95 mg/dL (70-99) Calcium Level 9.3 mg/dL (8.5-10.1) 9.0 mg/dL (8.5-10.1) Magnesium Level 2.1 mg/dL (1.8-2.4) Total Bilirubin 0.2 mg/dL (0.2-1.0) Direct Bilirubin 0.1 mg/dL (0.0-0.2) Aspartate Amino Transf (AST/SGOT) 16 U/L (15-37) Alanine Aminotransferase (ALT/SGPT) 18 U/L (14-59) Alkaline Phosphatase 73 U/L (46-116) Creatine Kinase 77 U/L (26-192) Troponin I Quantitative < 0.017 ng/mL (0-0.055) < 0.017 ng/mL (0-0.055) AJ-Eij-T-Type Natriuretic Peptide 32 pg/mL (0-124) Total Protein 7.4 g/dL (6.4-8.2) Albumin 4.2 g/dL (3.4-5.0) Lipase 218 U/L (73-393) Thyroid Stimulating Hormone (TSH) 2.169 uIU/mL (0.358-3.740) Ethyl Alcohol Level < 10 mg/dL (0-10) Urine Collection Type Unknown Urine Color Yellow Urine Clarity Clear Urine pH 6.5 Urine Specific [place] 1.010 Urine Protein Neg (NEG-TRACE) Urine Glucose (UA) Neg mg/dL (NEG) Urine Ketones (Stick) Neg mg/dL (NEG) Urine Blood Trace (NEG) Urine Nitrite Neg (NEG) Urine Bilirubin Neg (NEG) Urine Urobilinogen Dipstick 0.2 mg/dL (0.2 mg/dL) Urine Leukocyte Esterase Trace (NEG) Urine RBC Occ /HPF (0-2) Urine WBC 1-4 /HPF (0-4) Urine Squamous Epithelial Cells Few /LPF Urine Bacteria 0 /HPF (0-FEW) Urine Opiates Screen Neg (NEG) Urine Methadone Screen Neg (NEG) Urine Barbiturates Neg (NEG) Urine Phencyclidine Screen Neg (NEG) Urine Amphetamine/Methamphetamine Neg (NEG) Urine Benzodiazepines Screen Neg (NEG) Urine Cocaine Screen Neg (NEG) Urine Cannabinoids Screen Neg (NEG) Urine Ethyl Alcohol Neg (NEG) Triglycerides Level 253 mg/dL (0-150) Cholesterol Level 193 mg/dL (0-200) LDL Cholesterol, Calculated 119 mg/dL (0-100) VLDL Cholesterol, Calculated 50 mg/dL (0-40) Non-HDL Cholesterol Calculated 169 mg/dL (0-129) HDL Cholesterol 24 mg/dL (40-60) Cholesterol/HDL Ratio 8.0 Medications Current Medications Lactated Ringer's 1,000 ml @ 100 mls/hr Q10H IV Last administered on at 23:16; Start 05/08/18 at 18:30; Stop 05/09/18 at 04:30; Status DC Aspirin (Jose Luis Aspirin) 325 mg 1X ONCE PO Last administered on 05/08/18at 21:00 ; Start 05/08/18 at 21:00; Stop 05/08/18 at 21:04; Status DC Enoxaparin Sodium (Lovenox 80mg Syringe) 80 mg 1X ONCE SQ Last administered on 05/08/18at 21:01; Start 05/08/18 at 21:00; Stop 05/08/18 at 21:05; Status DC Ondansetron HCl (Zofran) 4 mg PRN Q4HRS PRN IV NAUSEA/VOMITING Last administered on 05/09/18at 20:57; Start 05/08/18 at 21:00; Stop 05/09/18 at 20:59 ; Status DC Acetaminophen (Tylenol) 650 mg PRN Q4HRS PRN PO FEVER Last administered on 05/09 12:42; Start 05/08/18 at 21:00; Stop 05/09/18 at 20:59; Status DC Albuterol/ Ipratropium (Duoneb) 3 ml RTQID NEB ; Start 05/09/18 at 08:00; Stop 05/10/18 at 07:59; Status DC Aspirin (Children'S Aspirin) 81 mg DAILY PO Last administered on 05/09/18at 10: 15; Start 05/09/18 at 09:00 Enoxaparin Sodium (Lovenox 80mg Syringe) 80 mg BID SQ ; Start 05/08/18 at 21:00 ; Stop 05/08/18 at 21:13; Status DC Enoxaparin Sodium (Lovenox 80mg Syringe) 80 mg BID SQ Last administered on 05/09at 10:15; Start 05/09/18 at 09:00 Nicotine (Nicoderm Cq 21mg) 1 patch DAILY TD Last administered on 05/10/18at 08: 40; Start 05/09/18 at 10:30 Pantoprazole Sodium (Protonix) 40 mg DAILYAC PO Last administered on 05/10/18 08:38; Start 05/09/18 at 11:00 Ondansetron HCl (Zofran) 4 mg PRN Q4HRS PRN IV NAUSEA/VOMITING Last administered on 05/10/18 08:38; Start 05/09/18 at 22:15 Acetaminophen (Tylenol) 650 mg PRN Q4HRS PRN PO PAIN / TEMP Last administered on 05/10/18at 08:38; Start 05/09/18 at 22:15 Regadenoson (Lexiscan) 0.4 mg 1X ONCE IV ; Start 05/10/18 at 09:30; Stop at 09:31; Status DC Active Scripts Active [place] 5-325 Tablet (Hydrocodone Bit/Acetaminophen) 1 Each Tablet 1-2 Tab PO Q6HRS PRN Reported Prozac (Fluoxetine Hcl) 10 Mg Capsule Unknown Dose PO Vitals/I & O Vital Sign - Last 24 Hours 05/09/18 05/09/18 05/09/18 05/09/18 15:18 19:38 20:11 22:47 Temp 98.1 98.0 98.2 Pulse 77 87 73 Resp 20 18 16 B/P (MAP) 124/67 (86) 121/78 (92) 111/73 (86) Pulse Ox 95 98 98 O2 Delivery Room Air Room Air Room Air Room Air 05/10/18 05/10/18 05:19 08:48 Temp 98.2 Pulse 76 Resp 18 B/P (MAP) 122/91 (101) Pulse Ox 96 O2 Delivery Room Air Room Air Intake and Output 05/09/18 05/09/18 05/10/18 15:00 23:00 07:00 Intake Total 0 ml 0 ml Balance 0 ml 0 ml MIREYA GODOY APRN May 10, 2018 10:28
[2018-05-10 11:15] VITALS: BP 133/88
[2018-05-10 11:16] VITALS: BP 128/88
[2018-05-10 11:17] VITALS: BP 137/86
[2018-05-10] MEDS: ASPIRIN 81 MG TAB.CHEW PO SCH (11:56)
[2018-05-10] MEDS: ENOXAPARIN ** NOTE DOSE ** SYRINGE SQ SCH (11:58)
[2018-05-10 14:12] VITALS: BP 104/68
--- NOTE | 2018-05-10 14:56 | RAD ---
MR#: [id number] Date of Study: 05/10/2018 Ordering Physician: JONES RIOS, Referring Physician: HOPE HALEY Tech: RT Julien (R) (N) APPROVED REPORT Test Type: Pharmacological Stress Nurse/Tech: Javier Test Indications: Syncopy Cardiac History: No known cardiac Medications: SEE EHR Resting Heart Rate: 80 bpm Resting Blood Pressure: 129/83mmHg Pretest Chest Pain: None Pharm. Details Pharmacologic stress testing was performed using 0.4mg per 5ml of regadenoson given intravenously ove r 7-10 seconds. Stress Symptoms Dyspnea, headache POST EXERCISE Max HR: 119 bpm Max Blood Pressure: 138/71mmHg Blood Pressure response to exercise: Normal blood pressure response during stress. Heart Rate response to exercise: Normal Chest Pain: No. Arrhythmia: No. ST Change: No. INTERPRETATION Stress EKG Conclusion: Baseline EKG showed sinus rhythm. No ischemic changes at peak stress. No arr hythmias. Imaging Protocol IMAGE PROTOCOL: Rest Tc-99m/stress Tc-99m 1 day Rest: Stress: Viability: Radiopharm.Tc99m IrykamyswLp69r Sestamibi Wlvb34nWa 31mCi Duration 20min. 15min. Img Date 05/10/2018 05/10/2018 Inj-Img Debo57mvr. 60min. Rest Admin Site:IV - Right AntecubitalAdministrator: RT Julien (R)(N) Stress Admin Site: IV - Right AntecubitalAdministrator: RT Julien (R)(N) STRESS DATA End Diast. Vol.87.0mlAv. Heart Rate83.0bpm LVEDV index BSA2.0mlCardiac Output0.1L/min End Syst. Vol.23.0mlCO Index BSA5.3L/min LVESV index BSA0.0mlMyocardial Yopa554.0g Eject. Lyhlxdmp77.0% Stress Rates Pk. Fill Rate4.12EDV/secLVtime Pk. Fill 206.17msec Pk. Empty Rate4.53ESV/secLVtime Pk. Vxypv433.26msec 1/3 Pk. Fill1.60EDV/sec Stress Scores Regional WT0.00Summed WT0.00 Regional WM0.00Summed WM0.00 Study quality was good. Left Ventricular size was Normal at Rest and Stress. Lung uptake was . Left Ventricular ejection fraction is 74%. The rest and stress images show normal perfusion, normal contraction and thickening. LV Perf. Quant 17 Seg. SSS0.00 17 Seg. SRS2.00 17 Seg. SDS0.00 Stress Defect Extent (% LAD)0.00Rest Defect Extent (% LAD)0.00Rev. Defect Extent (% LAD)0.00 Stress Defect Extent (% LCX) 0.00Rest Defect Extent (% LCX)0.00Rev. Defect Extent (% LCX)0.00 Stress Defect Extent (% RCA)0.00Rest Defect Extent (% RCA)0.00Rev. Defect Extent (% RCA)0.00 Stress Defect Extent (% JAMES)0.00Rest Defect Extent (% JAMES)0.00Rev. Defect Extent (% JAMES)0.00 Conclusion 1. Regadenoson cardioisotope stress test did not show any evidence of ischemia or infarct. 2. Normal left ventricular systolic function with ejection fraction calculated at 74%. 3. Low risk for cardiac events. Signed by : Aleksey Thompson, Electronically Approved : 05/10/2018 14:55:53
[2018-05-10] MEDS ORDERED: PANT40TA3 PO (16:21)
[2018-05-10] MEDS ORDERED: NICO1PAT21 TP (16:35)
--- NOTE | 2018-05-10 17:23 | DS ---
DATE OF DISCHARGE: HISTORY OF PRESENT ILLNESS: The patient is a 42-year-old female patient, who came to the Emergency Room after a witnessed syncopal event and possible arrest for which her performed CPR briefly. She reports that she was sitting at the table when she had a sudden onset of palpitations. She describes it as her heart racing. She states she told her , her heart was racing and decided to go lay down. She began to have shortness of breath, lightheadedness, feeling like everything sounded like she was in tunnel. When lying down, did not help her symptoms, she got up and walked to the kitchen. She made a trip to the bathroom and when walking back to her living room, her dizziness worsened and she states that this is her last memory. Both her eyes rolled back and she passed out. He was unable to detect the pulse and she was not breathing and turning conte, so he started CPR. He stated that did compression for about 40-50 seconds, when she took a sudden snoring like breath. He says over the next minute or so, she woke up as talking gibberish. She believes took about 5-10 minute to be aware and to be understandable. She actually refused to come ____ 24-hour later she had some chest pain and discomfort from compression. She was using a keto diet and lost about 26 pounds. Additionally, she said that she has chronic acid reflux for 20 years for which she is regularly on PPI. The patient was extensively evaluated in the Emergency Room and was admitted. She has 3 sets of cardiac enzymes that ruled out myocardial infarction. Her fasting lipid profile showed that serum triglycerides were 253. Her total cholesterol 193, LDL was 119 and VLDL cholesterol was 50, HDL was 24 and the ratio was 8. Her TSH was normal at 2.169. Her white cell count was 5900, hemoglobin 13.5, hematocrit 39, MCV 92, and platelet count 259,000. Her prothrombin time was 9.3, INR 0.9. APTT was 27. D-dimer was 0.39. Urinalysis was unremarkable. Toxic screen was essentially negative. She had had a CT scan of the head which was unremarkable and showed no acute intracranial abnormalities seen. Her chest x-ray also showed mild interstitial opacities bilaterally, may be secondary to atypical or viral infection. The nuclear stress test did not show any evidence of ischemia or infarct. She has normal left ventricular systolic function, ejection fraction calculated at 74%. She has a low risk for cardiac event. DISCHARGE MEDICATIONS: The patient will be discharged home to continue on her Protonix 40 mg once a day, fluoxetine for Prozac 10 mg once a day, hydrocodone/APAP 5/325 one to two tablets every 6 hours. She was also discharged on Nicoderm patch 21 mg once a day for 2 weeks and then 14 mg once a day for 2 weeks and 7 mg once a day for 2 weeks. FINAL DISCHARGE DIAGNOSES: 1. Syncopal episode, suspect arrhythmia based on history. No acute EKG changes. No troponin elevation. No arrhythmias on tele since admission. Her stress test was negative and her echocardiogram showed normal left ventricular systolic function and without any wall motion abnormalities. The patient was advised not to drive for at least 2 weeks. Should have an outpatient heart monitor for 2 weeks. She was advised to stop smoking as well as to stop the keto diet. 2. Chest pain, atypical, myocardial infarction was ruled out. No acute EKG changes and normal cardiac enzyme. 3. Dyslipidemia for which the patient was given advice about dietary management, avoiding all dairy products. She can eat cottage cheese. She was advised to avoid all processed meat like sausages and hot dog. She should eat white meat like fish and chicken or turkey rather than red meat. Should take ____ and should use a vegetable oil instead of animal fat. 4. For her gastroesophageal reflux disease. We started her on proton pump inhibitor in the form of Protonix 40 mg once a day. 5. She was advised to elevate the head of the bed at nighttime. 6. She should avoid smoking and drinking. 7. Avoid eating food for at least 2-3 hours before going to bed and should use Tylenol for pain instead of nonsteroidal anti-inflammatory medication. 8. For her nicotine addiction. She was given a prescription for Nicoderm patch. JORI DC MD DR: SOPHIE/erica JOB#: [id number] / [id number]
[2018-05-11 00:09] LABS: HEMOGLOBIN A1C 4.9 % (4.8-5.6)
--- NOTE | 2018-05-29 11:18 | EKG ---
[address] [address] Test Date: 2018-05-09 Test Time: 03:43:28 Pat Name: LORRI ESPITIA Department: Room: 120 A Gender: Psychiatric Assistant: : 1975 Requested By: JORI DC Order Number: [id number] Reading MD: Daniel Castellanos MD Measurements Intervals [place] Rate: P: VA: QRS: QRSD: T: QT: QTc: Interpretive Statements SR NON-SPECIFIC ST/T CHANGES MISSING LEADS Electronically Signed On 05-29-2018 14:10:22 CDT by Daniel Castellanos MD
== END 2018-05-10 17:05 | disposition home or self-care (01) ==
LOC: ER 18:14 → INTOOBSV 20:00 → 1 SOUTH 20:00
PROVIDERS: ADMIT Internal Medicine; ATTEND Internal Medicine
DX: I25.10 Atherosclerotic heart disease of native coronary artery without angina pectoris (principal); K21.9 Gastro-esophageal reflux disease without esophagitis; F17.210 Nicotine dependence, cigarettes, uncomplicated; F12.90 Cannabis use, unspecified, uncomplicated; E78.5 Hyperlipidemia, unspecified; Z82.49 Family history of ischemic heart disease and other diseases of the circulatory system; Z83.3 Family history of diabetes mellitus; Z90.710 Acquired absence of both cervix and uterus; H54.62 Unqualified visual loss, left eye, normal vision right eye; F41.9 Anxiety disorder, unspecified; F32.9 Major depressive disorder, single episode, unspecified
CPT/HCPCS: 36415; 70450; 71045; 78452; 80048; 80061; 80076; 80307; 81001; 82550; 83036; 83690; 83735; 83880; 84443; 84484; 85025; 85379; 85610; 85651; 85730; 87086; 93005; 93017; 93306; 96361; 96372; 96374; 96376; 99284; 99406; A9500; G0378; G0480; J1650; J2405; J2785; J7120; 96375; G0379; 99285-25

== ENCOUNTER → 2019-10-30 | Outpatient (CLI) | payer BC ==
[~2019-10-30] MED LIST changes: +NICO1PAT21 TP; +PANT40TA3 PO
--- NOTE | 2019-10-30 15:27 | RAD ---
DATE: 10/30/2019 10:28 AM EXAM: DIGITAL SCREEN BILAT W/CAD HISTORY: Screening COMPARISON: 11/23/2017 Bilateral full field craniocaudal and mediolateral oblique images were obtained using digital technique. This study was interpreted with the benefit of Computerized Aided Detection (CAD). FINDINGS: Breast Density: FATTY The Breast Parenchyma is primarily fatty replaced. Breast parenchyma level density A. No suspicious masses, microcalcifications or architectural distortion is present to suggest malignancy in either breast. The visualized axillae are unremarkable. IMPRESSION: No mammographic evidence of malignancy. BI-RADS CATEGORY: 1 NEGATIVE RECOMMENDED FOLLOW-UP: 12M 12 MONTH FOLLOW-UP Annual screening mammography is recommended, unless clinically indicated sooner based on symptoms or change in physical exam. PQRS compliance statement: Patient information was entered into a reminder system with a target due date for the next mammogram. Mammography is a sensitive method for finding small breast cancers, but it does not detect them all and is not a substitute for careful clinical examination. A negative mammogram does not negate a clinically suspicious finding and should not result in delay in biopsying a clinically suspicious abnormality. "Our facility is accredited by the [employer] Mammography Program."
== END | disposition home or self-care (01) ==
LOC: MAMMO 10:26
PROVIDERS: ATTEND Physician Assistant Medical
DX: Z12.31 Encounter for screening mammogram for malignant neoplasm of breast (principal)
CPT/HCPCS: 77067

== ENCOUNTER → 2019-12-11 | Outpatient (CLI) | payer BC | LOC: LAB 03:32 | PROVIDERS: ATTEND Physician Assistant Medical | DX: Z20.828 Contact with and (suspected) exposure to other viral communicable diseases (principal) | CPT/HCPCS: U0003-CS ==

== ENCOUNTER → 2020-10-30 | Outpatient (CLI) | payer BC ==
--- NOTE | 2020-10-31 10:23 | RAD ---
INDICATION: 45 years of age asymptomatic female patient presents for screening mammography. TECHNIQUE: Full field craniocaudal and mediolateral oblique images of both breasts were obtained usi ng digital technique with tomosynthesis and also analyzed with computer-aided detection software. COMPARISON: Prior mammographic imaging 10/30/2019, 10/28/2015 11/23/2017 BREAST COMPOSITION: Category B: There are scattered fibroglandular densities. FINDINGS: Benign calcifications are present. The parenchymal pattern appears stable. No suspicious masses, microcalcifications or architectural distortion is present to suggest malignanc y in either breast. The visualized axillae are unremarkable. IMPRESSION: No mammographic evidence of malignancy. RECOMMENDATION: Annual screening mammography is recommended, unless clinically indicated sooner based on symptoms or change in physical exam. BIRADS 2: BENIGN This study was interpreted with the benefit of Computerized Aided Detection (CAD). Patient information is entered into the reminder system with a target due date for the next screening mammogram. Mammography is the most sensitive method for finding small breast cancers, but it does not detect the m all and is not a substitute for careful clinical examination. A negative mammogram does not negate a clinically suspicious finding and should not result in delay in biopsying a clinically suspicious a bnormality. "Our facility is accredited by the [employer] Mammography Program." Electronically signed by: Linden Jones MD (10/31/2020 10:20 AM) [facility]
== END ==
LOC: MAMMO 08:08
PROVIDERS: ATTEND Physician Assistant Medical
DX: Z12.31 Encounter for screening mammogram for malignant neoplasm of breast (principal)
CPT/HCPCS: 77063; 77067